=== PATIENT | male | born 1990 | race Caucasian/White ===

== ENCOUNTER 2020-04-14 00:41 | Emergency (ER) | payer BC, SELFPAY ==
[~2020-04-14] VITALS: Ht 177.8 cm; Wt 115.9 kg
[2020-04-14 06:29] VITALS: BP 126/60
== END 2020-04-14 06:47 | disposition home or self-care (01) ==
LOC: EDBD 00:41 → M ED 00:41 → CANBEDREQ 06:35 → M ED 06:47
DX: R45.851 Suicidal ideations (principal); F33.9 Major depressive disorder, recurrent, unspecified